=== PATIENT | female | born 1955 | race Caucasian/White ===

== ENCOUNTER 2018-06-21 07:50 | Day surgery (SDC) | payer BC ==
[~2018-06-21 07:50] MED LIST: Lactated Ringers 1,000 ML IV SCH
[2018-06-21] MEDS ORDERED: Lidocaine 2% 5 ML SDV ONE (08:34)
[2018-06-21] MEDS ORDERED: fentaNYL 100 MCG/2 ML SDV ONE (08:34)
[2018-06-21] MEDS ORDERED: Midazolam 1 MG/ML 2 ML SDV ONE (08:34)
[2018-06-21] MEDS ORDERED: Propofol 200 MG/20 ML SDV ONE ×3 (08:34→10:38)
[2018-06-21] MEDS ORDERED: Morphine 10 MG/ML Syringe IVPUSH PRN (09:50)
[2018-06-21] MEDS ORDERED: Acetaminophen/HYDROcodone 325-5 MG Tab PO PRN (09:50)
--- NOTE | 2018-06-21 09:52 | PCM.OPNOTE ---
- General Post-Op/Procedure Note Date of Surgery/Procedure: 06/21/18 Operative Procedure(s): Laparoscopic cholecystectomy Pre Op Diagnosis: Symptomatic cholelithiasis Post-Op Diagnosis: Cholelithiasis with acute and chronic cholecystitis Anesthesia Technique: General ET Tube (ASA II) Primary Surgeon: Damien Amor Fluid Replacement, Intraop: 1,600 EBL in mLs: 30 Condition: Good Free Text/Narrative:: DICTATION 265117 CPT CODE 43941
[2018-06-21] MEDS ORDERED: Lactated Ringers 1,000 ML IV SCH ×2 (10:00→11:00)
--- NOTE | 2018-06-21 10:03 | PCM.PREANE ---
Preanesthetic Assessment - Procedure Proposed Procedure: EGD and Colonoscopy - Anesthesia/Transfusion/Family Hx Anesthesia History: Prior Anesthesia Without Reaction Family History of Anesthesia Reaction: No Transfusion History: No Prior Transfusion(s) Intubation History: Unknown - Review of Systems General: No Symptoms, Other (obesity) Pulmonary: No Symptoms Cardiovascular: Other (HTN, no meds taken this AM) Gastrointestinal: Other (s/p gastric banding w/ GERD continued since) Neurological: Pre-Existing Deficit (low back DJD and chronic pain) - Physical Assessment NPO Status Date: 06/20/18 NPO Status Time: 22:00 O2 Sat by Pulse Oximetry: 97 Respiratory Rate: 16 Vital Signs: Last Vital Signs Temp 97.5 F 06/21/18 08:45 Pulse 68 06/21/18 08:45 Resp 16 06/21/18 08:45 BP 129/82 06/21/18 08:45 Pulse Ox 97 06/21/18 08:45 Height: 5 ft 7 in Weight: 240 lb ASA Class: 3 Mental Status: Alert & Oriented x3 ROM/Head Extension: Full Lungs: Clear to Auscultation, Normal Respiratory Effort Cardiovascular: Regular Rate, Regular Rhythm, No Murmurs - Allergies Allergies/Adverse Reactions: Allergies Allergy/AdvReac Type Severity Reaction Status Date / Time nitrofurantoin Allergy Hives Verified 06/15/18 13:54 [From Macrodantin] Sulfa (Sulfonamide Allergy Hives Verified 06/15/18 13:54 Antibiotics) - Blood Blood Available: No Product(s) Available: None - Anesthesia Plan Pre-Op Medication Ordered: None - Acknowledgements Anesthesia Type Planned: MAC Pt an Appropriate Candidate for the Planned Anesthesia: Yes Alternatives and Risks of Anesthesia Discussed w Pt/Guardian: Yes Pt/Guardian Understands and Agrees with Anesthesia Plan: Yes PreAnesthesia Questionnaire HEENT History: Reports: Other (See Below) Other HEENT History: 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, wears glasses Cardiovascular History: Reports: Hypertension Gastrointestinal History: Reports: GERD Genitourinary History: Reports: Renal Calculus [employer] PROCESS [employer]LY[employer] History: Reports: Ectopic , Endometriosis, Musculoskeletal History: Reports: Back Pain, Chronic, Osteoarthritis Neurological History: Reports: None Psychiatric History: Reports: Anxiety, Depression Endocrine/Metabolic History: Reports: Obesity/BMI 30+ - Past Surgical History Head Surgeries/Procedures: Reports: None HEENT Surgical History: Reports: Tonsillectomy GI Surgical History: Reports: Bariatric Procedure, Colonoscopy, EGD Other GI Surgeries/Procedures: gastric banding Female Surgical History: Reports: Section, Hysterectomy, Other (See Below) Other Female Surgeries/Procedures: laparotomy/salpingectomy for ectopic , laparoscopy for endometriosis Neurological Surgical History: Reports: Laminectomy Musculoskeletal Surgical History: Reports: Shoulder Surgery Other Musculoskeletal Surgeries/Procedures:: Rt RTCR - SUBSTANCE USE Smoking Status *Q: Never Smoker Recreational Drug Use History: No - HOME MEDS Home Medications: Home Meds Cholecalciferol (Vitamin D3) [Vitamin D3] 2,000 units PO DAILY 08/20/16 [History ] Lisinopril 10 mg PO BEDTIME 08/20/16 [History] Mirabegron [Myrbetriq] 50 mg PO BEDTIME 08/20/16 [History] Multivitamin [Multivitamins] 1 tab PO DAILY 08/20/16 [History] amLODIPine [Norvasc] 5 mg PO BEDTIME 08/20/16 [History] buPROPion HCl [Wellbutrin SR] 150 mg PO BEDTIME 08/20/16 [History] Acetaminophen with Codeine [Tylenol with Codeine #3 Tablet] 2 tab PO BEDTIME PRN 06/15/18 [History] Omeprazole 20 mg PO BEDTIME 06/15/18 [History] Hydrocodone/Acetaminophen [Hydrocodon-Acetaminophen 5-325] 1 each PO Q6HR PRN 4 Days #15 tablet 06/21/18 [Rx] - CURRENT (IN HOUSE) MEDS Current Meds: Current Medications Discontinued Medications Fentanyl (Sublimaze) Confirm Administered Dose 100 mcg .ROUTE .STK-MED ONE Stop: 06/21/18 08:35 Lactated Ringer's (Ringers, Lactated) 1,000 mls @ 125 mls/hr IV ASDIRECTED DEYSI Last Admin: 06/21/18 08:50 Dose: 125 mls/hr Lidocaine (Xylocaine-Mpf 2%) Confirm Administered Dose 5 ml .ROUTE .STK-MED ONE Stop: 06/21/18 08:35 Midazolam HCl (Versed 1 Mg/Ml) Confirm Administered Dose 2 mg .ROUTE .STK-MED ONE Stop: 06/21/18 08:35 Propofol (Diprivan 20 Ml) Confirm Administered Dose 400 mg .ROUTE .STK-MED ONE Stop: 06/21/18 08:35
[2018-06-21] MEDS ORDERED: Glycopyrrolate 0.2 MG/ML SDV ONE (10:18)
--- NOTE | 2018-06-21 10:56 | PCM.OPNOTE ---
- General Post-Op/Procedure Note Date of Surgery/Procedure: 06/21/18 Operative Procedure(s): Esophagogastroduodenoscopy with biopsy. Colonoscopy with cold rectal polypectomy. Pre Op Diagnosis: Progressive heartburn. Family history of colon cancer. Desire for colorectal cancer screening. Post-Op Diagnosis: Gastritis. Hiatal hernia. Rectal polyp. Minimal sigmoid diverticulosis. Anesthesia Technique: MAC ( ASA 2) Primary Surgeon: Damien Amor Condition: Good Free Text/Narrative:: Intake & Output 06/20/18 06/21/18 06/21/18 19:59 03:59 11:59 Intake Total 1600 Balance 1600 DICTATION 429214/913375 CPT CODE 94209/12432
--- NOTE | 2018-06-21 11:10 | PCM.POSTAN ---
POST ANESTHESIA ASSESSMENT - MENTAL STATUS Mental Status: Alert, Oriented - RESPIRATORY Respiratory Status: Respiratory Rate WNL, Airway Patent, O2 Saturation Stable - CARDIOVASCULAR CV Status: Pulse Rate WNL, Blood Pressure Stable - GASTROINTESTINAL GI Status: No Symptoms - POST OP HYDRATION Hydration Status: Adequate & Stable
--- NOTE | 2018-06-21 11:15 | OR ---
SURGEON: Damien Amor M.D. DATE OF PROCEDURE: 06/21/2018 OPERATION PERFORMED: Esophagogastroduodenoscopy with biopsy. ANESTHESIA: MAC. ASA CLASSIFICATION: II. PREOPERATIVE DIAGNOSIS: Persistent and progressive heartburn. POSTOPERATIVE DIAGNOSES: 1. Mild gastritis. 2. Small hiatal hernia. DESCRIPTION OF PROCEDURE: The patient was taken to the endoscopy room positioned on the endoscopy table in the left lateral decubitus position. Time-out was called for appropriate identification of the patient and procedure. Monitored anesthesia care was provided. A bite block was placed between the patient's teeth. The gastroscope was inserted into the mouth and advanced without difficulty through the esophagus and stomach into the duodenum where examination was carried out in a retrograde fashion. Duodenal biopsies were obtained. The gastroscope was withdrawn into the stomach which does show [id number] gastritis. Antral biopsies were obtained to look for the presence of Helicobacter pylori. The gastroscope was retroflexed to visualize the proximal stomach where a small hiatal hernia could be seen. The gastroscope was then straightened and slowly withdrawn. GE junction was well defined and did not show any acute inflammatory changes at this point in time. Again, the hiatal hernia could be seen from above. The esophagus demonstrated good contractility. No mid or proximal lesions were identified. The vocal cords were visualized as the scope was withdrawn and noted to move symmetrically. The gastroscope was then removed with the patient having tolerated the procedure well. Following colonoscopy, she was taken to recovery room in stable condition. RAS / ADALBERTO /[id number]
--- NOTE | 2018-06-21 11:20 | OR ---
SURGEON: Damien Amor M.D. DATE OF PROCEDURE: 06/21/2018 OPERATION PERFORMED: Colonoscopy with cold rectal polypectomy. ANESTHESIA: MAC. ASA CLASSIFICATION: II. PREOPERATIVE DIAGNOSES: 1. Family history of colon cancer. 2. Desire for colorectal cancer screening. POSTOPERATIVE DIAGNOSES: 1. Rectal polyp. 2. Minimal sigmoid diverticulosis. DESCRIPTION OF PROCEDURE: With the patient having completed esophagogastroduodenoscopy, she was maintained in the left lateral decubitus position. The colonoscope was inserted into the rectum and advanced with minimal difficulty to the cecum where the colonoscope was retroflexed to visualize the ascending colon from below. The colonoscope was then straightened and slowly withdrawn. The cecum, ascending colon, hepatic flexure, transverse colon, splenic flexure, and descending colon showed no tumors, polyps, diverticula, or angiodysplastic changes. A few small scattered diverticula were noted in the sigmoid colon. No stricture, spasm, or bleeding was noted. One polyp was encountered in the proximal rectum and removed with the cold biopsy forceps and recovered. Once the colonoscope was withdrawn to the distal rectum, it was retroflexed to visualize the anal orifice from above. Again, no tumors or polyps were seen and there were no acute hemorrhoidal changes. The colonoscope was then removed with the patient having tolerated the procedure well. She was taken to recovery room in stable condition. RAS GLOVER /[id number]
[2018-06-21 11:28] VITALS: BP 111/83
== END 2018-06-21 11:29 | disposition home or self-care (01) ==
LOC: MW.SDS 07:50
PROVIDERS: ATTEND Surgery
DX: Z12.11 Encounter for screening for malignant neoplasm of colon (principal); D12.8 Benign neoplasm of rectum; K57.30 Diverticulosis of large intestine without perforation or abscess without bleeding; R12 Heartburn; K29.80 Duodenitis without bleeding; K29.50 Unspecified chronic gastritis without bleeding; K44.9 Diaphragmatic hernia without obstruction or gangrene; I10 Essential (primary) hypertension; E66.9 Obesity, unspecified; Z68.38 Body mass index [BMI] 38.0-38.9, adult; H54.61 Unqualified visual loss, right eye, normal vision left eye; Z80.0 Family history of malignant neoplasm of digestive organs; Z99.89 Dependence on other enabling machines and devices; F32.9 Major depressive disorder, single episode, unspecified; K21.9 Gastro-esophageal reflux disease without esophagitis; Z88.2 Allergy status to sulfonamides; Z88.1 Allergy status to other antibiotic agents
CPT/HCPCS: 43239; 45380; J2250; J2704; J3010; J3490; J7120

== ENCOUNTER 2023-08-31 08:05 | Day surgery (SDC) | payer BC, OTHER ==
[2023-08-31] MEDS ORDERED: Ondansetron 4 MG/2 ML SDV ONE (08:22)
[2023-08-31] MEDS ORDERED: propofoL 50 ML ONE (08:22)
[2023-08-31] MEDS ORDERED: Lactated Ringers 1,000 ML IV SCH (09:15)
[2023-08-31 09:18] VITALS: BP 119/76; PULSE 73
== END 2023-08-31 09:35 | disposition home or self-care (01) ==
LOC: MW.SDS 08:05
PROVIDERS: ATTEND Surgery
DX: Z12.11 Encounter for screening for malignant neoplasm of colon (principal); D12.3 Benign neoplasm of transverse colon; K57.30 Diverticulosis of large intestine without perforation or abscess without bleeding; I10 Essential (primary) hypertension; K21.9 Gastro-esophageal reflux disease without esophagitis; F32.A Depression, unspecified; E66.9 Obesity, unspecified; Z68.38 Body mass index [BMI] 38.0-38.9, adult; Z79.899 Other long term (current) drug therapy; Z88.2 Allergy status to sulfonamides; Z80.0 Family history of malignant neoplasm of digestive organs
CPT/HCPCS: 45380; J2405; J2704; J7120; 00811